=== PATIENT | female | born 1970 | race Caucasian/White ===

== ENCOUNTER → 2016-11-03 | Outpatient (CLI) | payer OTHER ==
[~2016-11-03] MED LIST: DOXY100C2 PO; GABA1CAP PO; GLC5 PO; GLC500 PO; GLIP5TAB3 PO; HYDR25TA4 PO; IBUP-1459 PO; MULTTAB PO; OMEP20CA9 PO; SERT1TAB68 PO; [UNRECOGNIZED DRUG - OTHER] PO
[2016-11-03 10:07] LABS: CHOLESTEROL/HDL RATIO 4.5; THYROID STIMULATING HORMONE 2.56 uIu/ml (0.300-4.500)
[2016-11-03 10:25] LABS: ESTIMATED AVERAGE GLUCOSE 117 mg/dl; HA1C FLAG Normal (Normal)
[2016-11-03 10:31] LABS: RATIO 7.4 mcg/mg (0-30.0)
== END | disposition home or self-care (01) ==
LOC: C.LAB 06:22
PROVIDERS: ATTEND Family Medicine
DX: E11.9 Type 2 diabetes mellitus without complications (principal); R53.83 Other fatigue

== ENCOUNTER → 2017-01-04 | Outpatient (CLI) | payer OTHER ==
[2016-12-22 09:54] LABS: BLOOD UREA NITROGEN 18 mg/dl (7-18); CREATININE 0.93 mg/dl (0.60-1.20)
[~2017-01-04] MED LIST changes: +GADAVIST IV PRN
--- NOTE | 2017-01-04 10:06 | DIAGNOSTIC IMAGING REPORT ---
MRI orbits ORBIT COMBO CLINICAL HISTORY: OPTIC NEURITIS visual change TECHNIQUE: Multiaxial MRI acquisition pre and post contrast administration COMPARISON STUDY: None FINDINGS: Signal characteristics of the globes appear unremarkable. Retroseptal structures including optic nerves and rectus musculature is unremarkable. No evidence for abnormal postcontrast enhancement. IMPRESSION: Normal study of the orbits Electronically signed by: Reinaldo Myles M.D. 01/04/2017 10:04 AM Dictated Date/Time: 01/04/2017 10:00 AM
--- NOTE | 2017-01-04 10:10 | DIAGNOSTIC IMAGING REPORT ---
MRI brain combination BRAIN COMBO FOR ORBITS CLINICAL HISTORY: OPTIC NEURITIS headache. Visual change. TECHNIQUE: Multiaxial MRI acquisition COMPARISON STUDY: None FINDINGS: Normal signal characteristics the cerebellar as well as cerebral hemispheres. Ventricular system is midline. There is no evidence for abnormal postcontrast enhancement. The structures of the sella and parasellar region are unremarkable. Internal auditory canals are symmetric. No evidence for abnormal postcontrast enhancement. IMPRESSION: Normal study Electronically signed by: Reinaldo Myles M.D. 01/04/2017 10:08 AM Dictated Date/Time: 01/04/2017 10:05 AM
== END | disposition home or self-care (01) ==
LOC: C.OPENMRI 08:03
PROVIDERS: ATTEND Ophthalmology
DX: H46.8 Other optic neuritis (principal)

== ENCOUNTER → 2017-06-21 | Outpatient (CLI) | payer OTHER ==
[~2017-06-21] MED LIST changes: -GADAVIST IV PRN
[2017-06-21 09:30] LABS: BASO % 0.2 %; BASO ABS # 0.02 K/uL (0-0.2); COMPLETE YES; EOS % 3.8 %; HEMATOCRIT 42.5 % (37-47); IG% 0.3 %; LYMPH % 38.7 %; LYMPH ABS # 3.66 K/uL (1.2-3.4); MEAN CELL VOLUME 82.7 fL (80-100); MEAN CORPUSCULAR HEMOGLOBIN 27.8 pg (25-34); MEAN CORPUSCULAR HGB CONC 33.6 g/dl (32-36); MEAN PLATELET VOLUME 10.7 fL (7.4-10.4); MONO % 4.9 %; NEUT % 52.1 %; PLATELET COUNT 211 K/uL (130-400); RED BLOOD COUNT 5.14 M/uL (4.2-5.4); WHITE BLOOD COUNT 9.45 K/uL (4.8-10.8)
[2017-06-22 09:34] LABS: ESTIMATED AVERAGE GLUCOSE 128 mg/dl; HA1C FLAG Normal (Normal)
== END | disposition home or self-care (01) ==
LOC: C.LAB 05:30
PROVIDERS: ATTEND Family Medicine
DX: Z11.4 Encounter for screening for human immunodeficiency virus [HIV] (principal); R41.3 Other amnesia

== ENCOUNTER → 2017-09-20 | Outpatient (CLI) | payer OTHER ==
[~2017-09-20] MED LIST changes: +GABA100C13 PO; -GABA1CAP PO
--- NOTE | 2017-09-20 14:53 | DIAGNOSTIC IMAGING REPORT ---
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 Last CT of abd/Pe TECHNIQUE: Multiaxial CT images of the abdomen and pelvis were performed without contrast. A dose lowering technique was utilized adhering to the principles of ALARA. COMPARISON STUDY: 08/21/2015 FINDINGS: Lung bases are clear. Moderate stable cardiomegaly. Prior cholecystectomy. 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 This is unaltered. Mild pancreatic atrophy. stable aneurysm measuring 13 mm of the splenic artery. Nonobstructive bowel pattern. Bladder is midline. No evidence for bowel obstructive pattern. No significant adenopathy within the abdomen and pelvic or inguinal regions. Normal appendix. IMPRESSION: 1. 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 2. Stable mild hepatosplenomegaly. 3. 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 4. No new or interval process compared to the prior study. The above report was generated using voice recognition software. It may contain grammatical, syntax or spelling errors. Electronically signed by: Reinaldo Myles M.D. 09/20/2017 2:51 PM Dictated Date/Time: 09/20/2017 2:47 PM
== END | disposition home or self-care (01) ==
LOC: C.CTS 14:07
PROVIDERS: ATTEND Surgery
DX: I72.8 Aneurysm of other specified arteries (principal)

== ENCOUNTER → 2018-02-08 | Outpatient (CLI) | payer OTHER ==
[~2018-02-08] MED LIST changes: +GABA-1693 PO; -GABA100C13 PO
[2018-02-08 10:04] LABS: BASO % 0.2 %; BASO ABS # 0.02 K/uL (0-0.2); EOS % 5.3 %; EOS ABS # 0.48 K/uL (0-0.5); HEMATOCRIT 42.8 % (37-47); HEMOGLOBIN 13.9 g/dL (12.0-16.0); IG# 0.02 K/uL (0.00-0.02); LYMPH % 35.9 %; LYMPH ABS # 3.26 K/uL (1.2-3.4); MEAN CELL VOLUME 82.3 fL (80-100); MEAN CORPUSCULAR HEMOGLOBIN 26.7 pg (25-34); MEAN CORPUSCULAR HGB CONC 32.5 g/dl (32-36); MEAN PLATELET VOLUME 10.2 fL (7.4-10.4); MONO ABS # 0.54 K/uL (0.11-0.59); NEUT % 52.4 %; NEUT ABS # 4.75 K/uL (1.4-6.5); PLATELET COUNT 196 K/uL (130-400); RED CELL DISTRIBUTION WIDTH CV 14.5 % (11.5-14.5); RED CELL DISTRIBUTION WIDTH SD 43.4 fL (36.4-46.3); WHITE BLOOD COUNT 9.07 K/uL (4.8-10.8)
[2018-02-08 10:27] LABS: ALKALINE PHOSPHATASE 74 U/L (45-117); ALT/SGPT 30 U/L (12-78); AST/SGOT 24 U/L (15-37); BLOOD UREA NITROGEN 12 mg/dl (7-18); CALCIUM 9.8 mg/dl (8.5-10.1); CARBON DIOXIDE 30 mmol/L (21-32); CHOLESTEROL 212 mg/dl (0-200); CREATININE 0.85 mg/dl (0.60-1.20); GLUCOSE 94 mg/dl (70-99); LDL CHOLESTEROL CALCULATED 114 mg/dl; POTASSIUM 3.6 mmol/L (3.5-5.1); SODIUM 142 mmol/L (136-145); TOTAL PROTEIN 7.8 gm/dl (6.4-8.2)
== END | disposition home or self-care (01) ==
LOC: C.LAB 05:32
PROVIDERS: ATTEND Family Medicine
DX: E11.9 Type 2 diabetes mellitus without complications (principal); F33.1 Major depressive disorder, recurrent, moderate

== ENCOUNTER → 2018-02-14 | Outpatient (CLI) | payer OTHER ==
[2018-02-14 09:49] LABS: HEMOGLOBIN A1C 5.8 % (4.5-5.6)
== END | disposition home or self-care (01) ==
LOC: C.LAB 05:35
PROVIDERS: ATTEND Family Medicine
DX: E11.9 Type 2 diabetes mellitus without complications (principal)